=== PATIENT | female | born 1955 | race African-American/Black ===

== ENCOUNTER 2021-06-01 15:31 | Inpatient (IN) | payer MEDICARE, OTHER ==
[~2021-06-01] VITALS: Ht 162.6 cm; Wt 68.0 kg
--- NOTE | 2021-06-01 15:45 | NUR ---
Pt was triaged, pt is waiting in the hallway in the ambulance gurney as there are no ER beds available at this time.
[2021-06-01] MEDS ORDERED: OLANZAPINE 10 MG VIAL IM ONE ×2 (16:45)
--- NOTE | 2021-06-01 17:00 | NUR ---
Pt placed in room 2b. Pt remains agitated, keeps getting out of gurney. Assisted back to [place] multiple times. No 1:1 sitter available, nursing receiving and processing supervisor is aware.
--- NOTE | 2021-06-01 17:20 | NUR ---
Pt refused EKG, ERMD notified.
[2021-06-01] MEDS ORDERED: LORAZEPAM 2 MG/1 ML VIAL IM ONE (17:30)
--- NOTE | 2021-06-01 17:32 | NUR ---
PT IS IN ROOM #2B. DR MARTINEZ EVALUATED THE PT.
[2021-06-01] MEDS ORDERED: LORAZEPAM 2 MG/1 ML VIAL ONE (17:39)
[2021-06-01 18:46] LABS: HEMATOCRIT 39.1 % (31.2-41.9); MEAN CORPUSCULAR HEMOGLOBIN 29.7 uug (24.7-32.8); MEAN CORPUSCULAR VOLUME 88.7 fL (75.5-95.3); PLATELET COUNT (AUTO) 220 K/uL (179-408)
[2021-06-01 18:50] LABS: CARBON DIOXIDE 24 mmol/L (21-32); CHLORIDE 106 mmol/L (98-107); CREATININE 0.9 mg/dL (0.6-1.3); GLUCOSE 95 mg/dL (74-106); POTASSIUM 3.6 mmol/L (3.5-5.1); UREA NITROGEN, BLOOD 13 mg/dL (7-18)
[2021-06-01 18:55] LABS: ETHANOL < 3 MG/DL (0-0)
[2021-06-01 18:56] LABS: ALANINE AMINOTRANSFERASE 12 U/L (14-59); ALKALINE PHOSPHATASE 46 U/L (50-136); ASPARTATE AMINOTRANSFERASE 11 U/L (15-37); BILIRUBIN,DIRECT 0.1 mg/dL (0.0-0.2); BILIRUBIN,TOTAL 0.3 mg/dL (0.2-1.0); TOTAL PROTEIN, SERUM 7.6 g/dL (6.4-8.2)
[2021-06-01 18:58] LABS: ACETAMINOPHEN < 2.0 ug/mL (10-30)
[2021-06-01 19:03] LABS: THYROID STIMULATING HORMONE 0.753 mIU/mL (0.358-3.740)
[2021-06-01] MEDS ORDERED: LORA-259 PO (21:32)
[2021-06-01] MEDS ORDERED: MAG30ORA PO (21:32)
[2021-06-01] MEDS ORDERED: MAGN400O6 PO (21:32)
[2021-06-01] MEDS ORDERED: ACET-2154 PO (21:32)
[2021-06-01] MEDS ORDERED: RISP2TAB85 PO (21:32)
[2021-06-01] MEDS ORDERED: DIVA250T PO (21:32)
[2021-06-01] MEDS ORDERED: MAGNESIUM HYDROXIDE 30 ML LIQUID UDC PO PRN ×2 (21:45→22:30)
[2021-06-01] MEDS ORDERED: MAG HYDROX/AL HYDROX/SIMETH 30 ML LIQUID UDC PO PRN ×2 (21:45→22:30)
[2021-06-01] MEDS ORDERED: ACETAMINOPHEN 325 MG TABLET PO PRN (22:30)
--- NOTE | 2021-06-01 22:43 | NUR ---
REPORT WAS GIVEN TO MHU RN. PT WAS TRANSFERED TO ROOM 137A.
[2021-06-01] MEDS: ZOLPIDEM 5 MG TABLET PO PRN (22:48)
[2021-06-01] MEDS: LORAZEPAM 0.5 MG TABLET PO PRN (22:48)
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
[2021-06-01 23:40] VITALS: BP 123/76
--- NOTE | 2021-06-02 06:19 | NUR ---
GPS: Pt.still asleep upon rounds. In no form of distress noted. Will continue to monitor behavior.
[2021-06-02 07:30] VITALS: BP 105/51
[2021-06-02] MEDS ORDERED: DIVALPROEX ER 250 MG TAB.SR.24H PO SCH (09:00)
[2021-06-02] MEDS ORDERED: DIVALPROEX 250 MG TABLET.DR PO SCH ×4 (09:00)
[2021-06-02] MEDS: LORAZEPAM 0.5 MG TABLET PO PRN (09:34)
--- NOTE | 2021-06-02 10:00 | NUR ---
Received patient in her bedroom , patient is responsive and uncooperative. Depakote is given per MD order but patient refused. Explained to the patient the action of the medicine and the risk of not taking it and patient stated " I DO NOT WANT TO TAKE IT BUT I WANT MY ANXIETY PILL" . Patient is agitated and very uncooperative. Lorazepam given per MD order. Notified charge nurse of her behavior.
[2021-06-02 15:05] VITALS: BP 97/55
[2021-06-02] MEDS: DIVALPROEX 250 MG TABLET.DR PO SCH (16:37)
--- NOTE | 2021-06-02 16:37 | NUR ---
Patient in bed, awake and verbally responsive, no s/s of distress. Depakote per MD ordered was offered and patient stated " I DON'T WANT IT, I DON'T WANT IT" Explained to the patient the risks of not taking this medication , patient stated " I DON'T WANT IT!" , patient stated in a firmed louder tone of voice. Charge nurse made aware.
[2021-06-02] MEDS: LORAZEPAM 1 MG TABLET PO PRN (18:02)
[2021-06-02 19:56] VITALS: BP 104/54
[2021-06-02] MEDS: risperiDONE 2 MG TABLET PO SCH (20:20)
[2021-06-03] MEDS: ZOLPIDEM 5 MG TABLET PO PRN (01:18)
--- NOTE | 2021-06-03 06:33 | NUR ---
Received Pt in the hallway, who immediately became verbally aggressive and threatening to this marketing copywriter. Pt was yelling and screaming, demanding to know "what are you going to do for me bitch?" Pt made several derogatory statements and challenged staff to "do something". Pt refused scheduled HS medication, but continuously demanded "my sleeper and that one that starts with an A". Pt wanted the Ativan and AMbien at the same time, but Ativan wasn't due yet. Pt became explosive and angrier, claiiming that the staff is "trying to keep my pills from me". Pt was verbally redirected and she stayed somewhat calm intermittently throughout the shift.
[2021-06-03] MEDS: risperiDONE 2 MG TABLET PO SCH ×3 (09:00→20:23)
[2021-06-03] MEDS: DIVALPROEX 250 MG TABLET.DR PO SCH ×2 (09:00→12:12)
[2021-06-03 09:07] VITALS: BP 105/53
[2021-06-03 16:31] VITALS: BP 99/58
--- NOTE | 2021-06-03 18:09 | NUR ---
patient is AAO x4, denies any pain or discomfort, verbally aggressive and uncooperative. patient refused to take Depakote only agree to take Risperdal after spoke with . refused schedule medication all day ,uncooperative with care .
[2021-06-03 20:10] VITALS: BP 98/55
[2021-06-03] MEDS: LORAZEPAM 1 MG TABLET PO PRN (20:19)
--- NOTE | 2021-06-04 04:43 | NUR ---
Pt refused scheduled HS medication. Pt is verbally aggressive and irritable and refuses education.
[2021-06-04 07:42] VITALS: BP 110/65
[2021-06-04] MEDS: risperiDONE 2 MG TABLET PO SCH ×2 (08:02→23:00)
--- NOTE | 2021-06-04 09:00 | NUR ---
faxed [place] petition to court with confirmation .
--- NOTE | 2021-06-04 09:35 | NUR ---
JASVIR Initial Discharge Plan: Patient currently resides at [facility]. Patient notified Ike admin if pt is welcomed back and Ike stated he will discuss with DON if pt is welcomed back. This SW contacted patient's brother Elaine ([phone]) and was unavailable at this time. JASVIR will work with the MD and family to coordinate appropriate discharge.
--- NOTE | 2021-06-04 09:36 | NUR ---
SNF Contact: Ike admin from [facility] contacted this SW stated that pt is welcomed back.
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
--- NOTE | 2021-06-04 09:47 | NUR ---
Treatment Plan: Pt refused to sign treatment plan and was verbally abusive towards this SW making inappropriate comments.
--- NOTE | 2021-06-04 09:57 | NUR ---
SW Family Contact: This SW attempted to contact patient's brother Elaine ([phone]) and was unable to leave a voicemail, his mailbox was full.
--- NOTE | 2021-06-04 10:11 | NUR ---
SW Family Contact: This SW received a call from patient's brother Elaine ([phone]) and he stated that he would want to be involved in patient's treatment/discharge plan. He reported that patient has been refusing to take her medications for about 10 years and that at times she spits her medications out. He was agreeable with patient returning back to [facility].
[2021-06-04] MEDS: DIVALPROEX 250 MG TABLET.DR PO SCH ×2 (12:02→16:36)
[2021-06-05 08:00] VITALS: BP 108/55
[2021-06-05] MEDS: risperiDONE 2 MG TABLET PO SCH ×2 (09:00→20:55)
[2021-06-05] MEDS: DIVALPROEX 250 MG TABLET.DR PO SCH ×3 (09:00→17:00)
--- NOTE | 2021-06-05 13:02 | NUR ---
GPS: pt refuses depakote at 900 and 1300, also refused respirdal at 0900. agressive behavior noted and verbally abusive even with the psychiatrist and other staff.
--- NOTE | 2021-06-05 14:37 | NUR ---
Refaxed [place] petition to court with confirmation .spoke with jose from court.
--- NOTE | 2021-06-05 17:37 | NUR ---
GPS: pt refused depakote. explained the benifits of taking the medication. pt stayed in the room and verbally abusive when offering the medication.
[2021-06-05] MEDS: ACETAMINOPHEN 325 MG TABLET PO PRN (20:55)
--- NOTE | 2021-06-05 22:00 | NUR ---
received to care, lying in bed, isolative, with blanket pulled over head, when approached. refused risperdal. bedtime snack and fluids provided at bedside, but only drank a minimal amount of water. as of 2199, she appears to be asleep. no distress noted. will continue to monitor closely.
[2021-06-05 23:13] VITALS: BP 107/55
--- NOTE | 2021-06-06 06:42 | NUR ---
slept 6.5 hours. continues to sleep. no distress noted.
[2021-06-06 07:30] VITALS: BP 99/48
[2021-06-06] MEDS: risperiDONE 2 MG TABLET PO SCH ×2 (10:34→20:33)
[2021-06-06] MEDS: DIVALPROEX 250 MG TABLET.DR PO SCH ×3 (10:34→17:16)
[2021-06-06 19:45] VITALS: BP 101/48
[2021-06-06] MEDS: ACETAMINOPHEN 325 MG TABLET PO PRN (20:34)
--- NOTE | 2021-06-06 22:00 | NUR ---
pt was received to care, lying in bed, isolative, with blanket pulled over head, no aggressive behavior noted, but stated that she does not wish to be bothered. she refused risperdal, and a bedtime snack. she did request PRN tylenol for generalized pain around 2019, and as of now, she appears to be in no distress. fluids provided at bedside, but she only drank a minimal amount of water. as of 2199, she appears to be asleep. no distress noted. will continue to monitor closely.
--- NOTE | 2021-06-07 03:00 | NUR ---
pt observed to be yelling loudly, and cursing. when approached, she said, "get out of here". she was difficult to redirect, even though she was reminded she had a room mate, and was disturbing other people, too. she calmed down within 10 minutes, and went back to sleep.
--- NOTE | 2021-06-07 06:43 | NUR ---
slept 8 hours. continues to sleep. no distress noted.
[2021-06-07 07:30] VITALS: BP 107/52
[2021-06-07] MEDS ORDERED: HALOPERIDOL LACTATE 5 MG/1 ML VIAL IM PRN (10:00)
[2021-06-07] MEDS ORDERED: diphenhydrAMINE 50 MG/1 ML VIAL IM PRN (10:00)
[2021-06-07] MEDS: DIVALPROEX 250 MG TABLET.DR PO SCH ×3 (10:24→16:54)
[2021-06-07] MEDS: risperiDONE 2 MG TABLET PO SCH ×3 (10:25→16:54)
--- NOTE | 2021-06-07 10:28 | NUR ---
GPS: pt alert and verbally responsive but with aggressive behavior. given depakote and risperdal PO and pt was mad at first because she was expecting to go to the [place] hearing. haldol IM was ordered today and if pt refuses to take PO respirdal and depakote, pt will get haldol IM. pt still verbally aggressive.
--- NOTE | 2021-06-07 12:42 | NUR ---
GPS: Pt on bed covering her head with blanket. upon calling her name, she answered back and informed her that lunch food is there and will give resperdal and depakote together. pt talked loudly and stating that it's too early. replied to pt that i'm giving medications on schedule. pt answered back with a loud tone "okay! do your job!". pt took the medication offered during the morning.
--- NOTE | 2021-06-07 12:57 | NUR ---
GPS: Pt took the medication after given. no loud talking noted.
[2021-06-07 16:03] VITALS: BP 103/48
[2021-06-07] MEDS: LORAZEPAM 1 MG TABLET PO PRN (16:17)
--- NOTE | 2021-06-07 16:19 | NUR ---
GPS: pt on bed requested for anti-anxiety medication. ativan given and tolerated well.
--- NOTE | 2021-06-07 16:57 | NUR ---
GPS: pt took the medication. stated "why am i getting a lot of medicine". explained to pt that medication is due right now and pt needs to take the depakote and respirdal. pt tolerated the medication given.
[2021-06-07 19:52] VITALS: BP 106/50
[2021-06-08] MEDS: DIVALPROEX 250 MG TABLET.DR PO SCH ×3 (08:05→16:15)
[2021-06-08] MEDS: risperiDONE 2 MG TABLET PO SCH ×3 (08:05→16:15)
[2021-06-08] MEDS: ENSURE ENLIVE (VAN) 240 ML LIQUID PO SCH (08:07)
[2021-06-08 08:41] VITALS: BP 92/56
[2021-06-08] MEDS: LORAZEPAM 1 MG TABLET PO PRN ×2 (09:25→20:32)
[2021-06-08 16:47] VITALS: BP 89/52
[2021-06-08 19:45] VITALS: BP 119/77
[2021-06-08] MEDS: ACETAMINOPHEN 325 MG TABLET PO PRN (21:00)
[2021-06-08] MEDS: ZOLPIDEM 5 MG TABLET PO PRN (21:58)
--- NOTE | 2021-06-09 01:28 | NUR ---
Received patient in room, responding to internal stimuli. Patient had many requests for food and PRN medications. This patient continues to have delusions and is paranoid as well. This rewriter attempted to engage patient in a reality based conversation, but the patients tangental, delusion thoughts made that difficult. An element of aggression shown when patient elevated her voice and started yelling for no reason. The patient has been redirectable so far this shift. Continuing to monitor the patient for safety and behavior escalation. B/p noted low, fluids encouraged and patient is asymptomatic.
[2021-06-09] MEDS: LORAZEPAM 1 MG TABLET PO PRN ×3 (02:43→20:34)
--- NOTE | 2021-06-09 06:27 | NUR ---
Patient only had 45 min of sleep. Spent most of the night talking to herself in her room. Continues to be delusional and labile. Monitoring for behavior escalation , medication compliance and safety.
[2021-06-09] MEDS: risperiDONE 2 MG TABLET PO SCH ×3 (08:04→16:18)
[2021-06-09] MEDS: ENSURE ENLIVE (VAN) 240 ML LIQUID PO SCH (08:04)
[2021-06-09] MEDS: DIVALPROEX 250 MG TABLET.DR PO SCH ×3 (08:04→16:18)
--- NOTE | 2021-06-09 09:37 | NUR ---
PT RECEIVED LYING IN BED. PT EASILY IRRITABLE AT THIS TIME. TALKING TO SELF AND RESPONDING TO INTERNAL STIMULI. COMPLIANT WITH MEDICATIONS WITH REINFORCEMENT. NO AGGRESSIVE OR COMBATIVE BEHAVIOR NOTED.
[2021-06-09 20:00] VITALS: BP 141/88
[2021-06-09] MEDS: ACETAMINOPHEN 325 MG TABLET PO PRN (20:36)
[2021-06-10] MEDS: ZOLPIDEM 5 MG TABLET PO PRN ×2 (00:52→22:33)
--- NOTE | 2021-06-10 01:23 | NUR ---
Received the patient at the nurses station telling everybody that "My doctor is about to call you. I was suppose to be let out of here at 3:00pm. " When this board writer tried to reorient the patient to the reality of the situation, the patents voice only became louder and fructose loader disrupting the unit. This board writer set firm limits with the patient and the response was positive. Food, fluids, distraction and medications were given. The patient was responding to internal stimuli most of the shift but has calmed down and is resting at this time. Continuing to monitor closely for safety and further behavior escalation.
[2021-06-10] MEDS: LORAZEPAM 1 MG TABLET PO PRN (08:04)
[2021-06-10] MEDS: DIVALPROEX 250 MG TABLET.DR PO SCH ×3 (08:04→16:53)
[2021-06-10] MEDS: risperiDONE 2 MG TABLET PO SCH ×3 (08:04→16:53)
[2021-06-10] MEDS: ENSURE ENLIVE (VAN) 240 ML LIQUID PO SCH (08:30)
[2021-06-10] MEDS: ACETAMINOPHEN 325 MG TABLET PO PRN ×2 (14:36→22:34)
[2021-06-10] MEDS ORDERED: LORAZEPAM 2 MG/1 ML VIAL IM ONE (15:45)
[2021-06-10] MEDS ORDERED: diphenhydrAMINE 50 MG/1 ML VIAL IM ONE (15:45)
[2021-06-10] MEDS ORDERED: HALOPERIDOL LACTATE 5 MG/1 ML VIAL IM ONE (15:45)
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
[2021-06-10 22:29] VITALS: BP 129/79
[2021-06-11] MEDS: LORAZEPAM 1 MG TABLET PO PRN ×3 (04:53→22:02)
[2021-06-11] MEDS: ACETAMINOPHEN 325 MG TABLET PO PRN ×3 (04:53→22:02)
--- NOTE | 2021-06-11 05:31 | NUR ---
Received patient in the bed last night, awake and irritable. This rfp writer checked the VS and noted the B/P was low. Fluids encouraged and close monitoring. After an hour this rfp writer had the the B/P within normal range. The patient was demanding, and requesting all kinds of different medications. Limits were set, but the patients responses were argumentative and defiant. The patient was up and down during the night, delusional thoughts and speech with every conversation. Operator Cavity Pump noted that the patient is still responding to internal stimuli but quietly instead of yelling like the night before. Total sleep hours were 5.00. Continuing to monitor for safety and behavior escalation.
[2021-06-11] MEDS: DIVALPROEX 250 MG TABLET.DR PO SCH ×3 (08:22→20:55)
[2021-06-11] MEDS: risperiDONE 2 MG TABLET PO SCH ×2 (08:22→20:55)
[2021-06-11] MEDS: ENSURE ENLIVE (VAN) 240 ML LIQUID PO SCH (08:23)
[2021-06-11] MEDS ORDERED: risperiDONE 2 MG TABLET PO SCH (13:00)
--- NOTE | 2021-06-11 14:19 | NUR ---
pt received lying in bed resting comfortably. Easily irritable and agitated verbally abuse toward to staffs . compliant with medications and care at this time. c/o anxiety Ativan 1 mg given as ordered No aggressive or combative behavior noted.
[2021-06-11 16:42] VITALS: BP 91/55
[2021-06-11 20:00] VITALS: BP 97/53
[2021-06-11] MEDS ORDERED: HALOPERIDOL LACTATE 5 MG/1 ML VIAL IM PRN (21:00)
--- NOTE | 2021-06-11 22:30 | NUR ---
received to care, mostly lying in bed, pleasant at times, but verbally abusive, and demanding at other times. she clearly appears to be distracted by internal stimuli. bedtime medications were given, but b/p was slightly low, 97/53. she denied any dizziness, or difficulty ambulating. a bedtime snack of milk, pudding, and a ham sandwich were given, at this time. by 2199, b/p was 108/60. she remained verbally hostile, and abusive. PRN ativan and tylenol were given at her request, at 2201, both for 'INSOMNIA'. she continued to deny any pain. as of 2229, she appears to be asleep. no distress noted. will continue to monitor closely.
[2021-06-12] MEDS: ACETAMINOPHEN 325 MG TABLET PO PRN ×3 (06:01→20:50)
[2021-06-12] MEDS: LORAZEPAM 1 MG TABLET PO PRN ×2 (06:01→11:56)
--- NOTE | 2021-06-12 06:02 | NUR ---
PRN tylenol and ativan given at her request, for anxiety
--- NOTE | 2021-06-12 06:26 | NUR ---
slept hours, total. appears to be sleeping again. she has been rude, demanding, and verbally abusive all shift, has been verbally aggressive, but not physical.
[2021-06-12 07:50] VITALS: BP 99/62
[2021-06-12] MEDS: DIVALPROEX 250 MG TABLET.DR PO SCH ×3 (08:23→20:44)
[2021-06-12] MEDS: risperiDONE 2 MG TABLET PO SCH ×3 (08:23→20:45)
[2021-06-12] MEDS: ENSURE ENLIVE (VAN) 240 ML LIQUID PO SCH ×3 (08:25→17:04)
[2021-06-12] MEDS ORDERED: PALIPERIDONE PALMITATE 234 MG/1.5 ML SYRINGE IM ONE (14:00)
--- NOTE | 2021-06-12 14:27 | NUR ---
patient received Invega IM now well tolerated .still remains paranoia and delusional compliant with all medication, patient with episode of verbally abuse toward to staffs.
[2021-06-12 20:12] VITALS: BP 89/56
--- NOTE | 2021-06-12 22:00 | NUR ---
Received to care, verbally abusive, belligerent, demanding, and easily agitated. B/P was slightly low, but she refused b/p recheck, after eating snacks, and taking fluids. Denied any dizziness, or difficulty walking. Bedtime medications were given, along with PRN tylenol, but she was not given ativan, as requested, due to unknown b/p status. As of 2200, she appears to be asleep. no distress noted. will continue to monitor closely.
[2021-06-13 02:00] VITALS: BP 92/60
[2021-06-13] MEDS: ACETAMINOPHEN 325 MG TABLET PO PRN ×2 (02:13→09:19)
--- NOTE | 2021-06-13 06:52 | NUR ---
slept 5.5 hours, total. was given PRN tylenol, around 2 AM. She is now awake. a carton of milk was given, at her request. she seems less hostile, this morning. no distress noted.
[2021-06-13 07:30] VITALS: BP 98/54
[2021-06-13] MEDS: DIVALPROEX 250 MG TABLET.DR PO SCH ×2 (08:24→16:57)
[2021-06-13] MEDS: risperiDONE 2 MG TABLET PO SCH ×2 (08:25→16:57)
[2021-06-13] MEDS: ENSURE ENLIVE (VAN) 240 ML LIQUID PO SCH ×2 (08:27→16:58)
--- NOTE | 2021-06-13 12:25 | NUR ---
SW Discharge Note: Patient will be discharged to shelter facility, [facility], [place] [address]; ) via Ambulance transportation at 3PM. Claims Support Specialist [facility] at [facility]; [phone], who stated patient will be accepted back at facility today. Per, ([phone]) has been made aware and agreeable with discharge plans. Patient is alert and oriented x3 and is unable to plan for self-care. Patient denies any suicidal or homicidal ideations. Patient is aware and agreeable with discharge plans. Patient will continue to follow-up with Psychiatrist Dr. Menendez and Pressure Welder Dr. Barillas at [facility] [[id number] [facility], [place] [address]; ). Patient presents with euthymic and congruent mood.
--- NOTE | 2021-06-13 16:04 | NUR ---
Patient will be discharged to [facility] . Patient is alert and oriented x3 and is unable to plan for self-care, all personal belonging returned to Patient .will continue to follow-up with Psychiatrist Dr. Menendez and Print Graphic Designer Dr. Barillas at [facility] . report called in to [facility] spoke with Justen MCCARTY.
--- NOTE | 2021-06-13 19:29 | NUR ---
GPS: Pt. was [facility] accompanied by 2 attendants from [facility] ambulance in stable condition with all her personal belongings. Health instructions given to pt.and verbalized understanding. No skin issues noted prior to discharge. VSS.
[2021-06-20] MEDS ORDERED: PALIPERIDONE PALMITATE 156 MG/ML SYRINGE IM ONE (12:45)
[2021-07-18] MEDS ORDERED: PALIPERIDONE PALMITATE 117 MG/0.75 ML SYRINGE IM ONE (12:45)
== END 2021-06-13 19:33 | DRG 885 ==
LOC: ER 15:34 → GPS 21:15
PROVIDERS: ADMIT Psychiatry & Neurology Psychiatry; ATTEND Nurse Practitioner Acute Care
DX: F25.0 Schizoaffective disorder, bipolar type (principal); F41.9 Anxiety disorder, unspecified; G40.909 Epilepsy, unspecified, not intractable, without status epilepticus; J44.9 Chronic obstructive pulmonary disease, unspecified; Z20.822 Contact with and (suspected) exposure to COVID-19; R26.89 Other abnormalities of gait and mobility
CPT/HCPCS: 36415; 71045; 84443; 85025; 93005; 97161; A4663; G0480; J1200; J1630; J2060; J2358; J2426; J3490